=== PATIENT | male | born 1965 | race Native Hawaiian/Other Pacific Islander ===

== ENCOUNTER 2017-11-22 08:57 | Emergency (ER) | payer OTHER ==
[~2017-11-22] VITALS: Ht 193 cm; Wt 158.8 kg
[~2017-11-22 08:57] MED LIST: HYDR25TA60 PO; LIPITOR20 MG PO
[2017-11-22 12:57] VITALS: BP 157/88; TEMP 97.1
== END 2017-11-22 13:02 | disposition home or self-care (01) ==
LOC: ED 08:57
DX: S39.011A Strain of muscle, fascia and tendon of abdomen, initial encounter (principal); R22.41 Localized swelling, mass and lump, right lower limb; X58.XXXA Exposure to other specified factors, initial encounter; Y92.89 Other specified places as the place of occurrence of the external cause
CPT/HCPCS: 99283

== ENCOUNTER 2017-11-27 11:54 | Outpatient (CLI) | payer OTHER ==
[2017-11-27 12:27] LABS: PLATELET COUNT 399 K/uL (142-355)
== END 2017-11-27 19:21 | disposition home or self-care (01) ==
LOC: LAB 11:54
PROVIDERS: Internal Medicine
DX: M79.89 Other specified soft tissue disorders (principal)
CPT/HCPCS: 36415; 80053; 85027; 85610

== ENCOUNTER 2018-05-05 07:23 | Day surgery (SDC) | payer OTHER ==
[~2018-05-05] VITALS: Ht 30.5 cm; Wt 0.5 kg
[2018-05-05 08:30] LABS: POTASSIUM 3.5 mmol/L (3.6-5.2)
[2018-05-05 08:31] LABS: PLATELET COUNT 255 K/uL (142-355)
== END 2018-05-05 10:25 | disposition home or self-care (01) ==
LOC: OR 07:23
PROVIDERS: Student in an Organized Health Care Education/Training Program
PROC: 0DBM8ZZ Excision of Descending Colon, Via Natural or Artificial Opening Endoscopic (ICD-10-PCS; principal; 2018-05-05)
DX: D12.4 Benign neoplasm of descending colon (principal); K64.8 Other hemorrhoids; Z12.11 Encounter for screening for malignant neoplasm of colon
CPT/HCPCS: 80053; 85027; J2001; J2405; J2704

== ENCOUNTER 2021-01-28 00:04 | Emergency (ER) | payer OTHER ==
[~2021-01-28] VITALS: Ht 193 cm; Wt 158.8 kg
[2021-01-28 00:05] VITALS: TEMP 99.2
[2021-01-28 00:43] VITALS: BP 148/91
[2021-01-28] MEDS ORDERED: AMLODIPINE BESYLATE PO (00:51)
[2021-01-28] MEDS ORDERED: MELOXICAM7.5 MG PO (00:52)
[2021-01-28] MEDS ORDERED: BENA10TA3 PO (00:53)
[2021-01-28] MEDS ORDERED: DEPO-TESTOS100 MG/M1 IM (00:57)
== END 2021-01-28 00:46 | disposition home or self-care (01) ==
LOC: ED 00:04
DX: M54.42 Lumbago with sciatica, left side (principal); M54.41 Lumbago with sciatica, right side; G89.29 Other chronic pain; Y35.891A Legal intervention involving other specified means, law enforcement official injured, initial encounter; Y92.89 Other specified places as the place of occurrence of the external cause
CPT/HCPCS: 96372; 99283; J1885; J2360

== ENCOUNTER 2021-06-22 15:41 | Outpatient (CLI) | payer OTHER ==
[~2021-06-22] VITALS: Ht 193 cm; Wt 158.8 kg
[~2021-06-22 15:41] MED LIST changes: +AMLODIPINE BESYLATE PO; +BENA10TA3 PO; +DEPO-TESTOS100 MG/M1 IM; +MELOXICAM7.5 MG PO
== END 2021-06-22 22:08 | disposition home or self-care (01) ==
LOC: INF 15:41
PROVIDERS: ATTEND Internal Medicine Endocrinology, Diabetes & Metabolism
DX: Z23 Encounter for immunization (principal); U07.1 COVID-19
CPT/HCPCS: M0244

== ENCOUNTER 2022-12-10 19:14 | Emergency (ER) | payer OTHER ==
[~2022-12-10] VITALS: Ht 193 cm; Wt 156.5 kg
[2022-12-10 20:38] VITALS: BP 143/81; TEMP 98.9
== END 2022-12-10 20:38 | disposition home or self-care (01) ==
LOC: ED 19:14
DX: S60.222A Contusion of left hand, initial encounter (principal); S60.512A Abrasion of left hand, initial encounter; Y35.811A Legal intervention involving manhandling, law enforcement official injured, initial encounter; Y92.89 Other specified places as the place of occurrence of the external cause
CPT/HCPCS: 90471; 90715; 96372; 99283; J1885; J2360

== ENCOUNTER 2022-12-13 04:02 | Emergency (ER) | payer OTHER ==
[~2022-12-13] VITALS: Ht 193 cm; Wt 156.5 kg
[2022-12-13 04:05] VITALS: TEMP 99.5
[2022-12-13 04:49] LABS: PLATELET COUNT 257 K/uL (142-355)
[2022-12-13 05:00] LABS: POTASSIUM 4.1 mmol/L (3.6-5.2)
[2022-12-13 06:05] VITALS: BP 128/72
== END 2022-12-13 06:55 | disposition short-term general hospital (02) ==
LOC: ED 04:02
PROVIDERS: Emergency Medicine
PROC: 0D9670Z Drainage of Stomach with Drainage Device, Via Natural or Artificial Opening (ICD-10-PCS; principal; 2022-12-13)
DX: K92.2 Gastrointestinal hemorrhage, unspecified (principal); Z11.52 Encounter for screening for COVID-19
CPT/HCPCS: 36415; 43754; 80053; 82271; 82272; 83690; 83986; 85027; 87635; 93005; 96361; 96365; 96366; 96372; 96375; 96376; 99285; J1170; J2405; J2550; J2765; J3490; Q9963; U0003